=== PATIENT | male | born 1955 | race Caucasian/White ===

== ENCOUNTER → 2019-12-16 | Outpatient (CLI) | payer MEDICARE ==
[~2019-12-16] MED LIST: Decadron IV; ENOXAPARIN40 MG/0.2 SC; FUROSEMIDE10 MG/1 M1 IV; Synthroid,Levo50 MCG NG
== END | disposition home or self-care (01) ==
LOC: COVID19 05:40
PROVIDERS: ATTEND Family Medicine
DX: U07.1 COVID-19 (principal)

== ENCOUNTER 2019-12-18 06:01 | Inpatient (IN) | payer MEDICARE ==
[2019-12-18] VITALS (48 sets, daily range): BP systolic 58–184; BP diastolic 31–91
[~2019-12-18] VITALS: Ht 182.9 cm; Wt 92.6 kg
[2019-12-18 06:18] LABS: BASO % 0.1 % (0.0-1.0); HEMATOCRIT 36.1 % (42.0-52.0); LYMPH # 1.1 10*3/uL (1.3-4.4); MEAN CORPUSCULAR HGB 30.7 pg (27.0-31.0); MEAN CORPUSCULAR HGB CONC 32.7 g/dl (33.0-37.0); MEAN PLATELET VOLUME 10.3 fl (9.6-12.3); MONO # 0.4 10*3/uL (0.1-1.0); MONO % 3.9 % (3.0-9.0); NEUT # 8.9 10*3/uL (2.3-7.9); NEUT % 84.7 % (47.0-73.0); PLATELET COUNT AUTOMATED 324 10*3/uL (130-400); RED BLOOD COUNT 3.84 10*6/uL (4.50-5.90); RED CELL DISTRI WIDTH 14.2 % (0-14.5); WHITE BLOOD COUNT 10.5 10*3/uL (4.8-10.8)
[2019-12-18 06:31] LABS: ALBUMIN 3.4 gm/dl (3.1-4.5); CREATININE 1.68 mg/dL (0.70-1.30); POTASSIUM 3.8 mmol/L (3.5-5.1); TOTAL PROTEIN 7.6 gm/dL (6.4-8.2)
[2019-12-18 06:33] LABS: TROPONIN I 0.036 ng/ml (<0.045)
[2019-12-18 06:38] LABS: THYROID STIM HORMONE (HS) 28.1 uIU/ml (0.358-4.75)
[2019-12-18 07:05] LABS: ABG BASE EXCESS 0.3 mmol/L (-2.0-2.0); ARTERIAL BLOOD GAS PH 7.436 (7.35-7.45)
[2019-12-18 08:36] LABS: ARTERIAL BLOOD GAS PH 7.459 (7.35-7.45)
[2019-12-18 10:52] LABS: ABG BASE EXCESS 0.6 mmol/L (-2.0-2.0); ARTERIAL BLOOD GAS PH 7.461 (7.35-7.45)
[2019-12-18 15:01] LABS: ABG BASE EXCESS -3.7 mmol/L (-2.0-2.0); ARTERIAL BLOOD GAS PH 7.367 (7.35-7.45)
[2019-12-18 17:29] LABS: ABG BASE EXCESS -3.6 mmol/L (-2.0-2.0); ARTERIAL BLOOD GAS PH 7.347 (7.35-7.45)
[2019-12-18 21:20] LABS: ABG BASE EXCESS -1.9 mmol/L (-2.0-2.0); ARTERIAL BLOOD GAS PH 7.336 (7.35-7.45)
[2019-12-19] VITALS (80 sets, daily range): BP systolic 91–9108; BP diastolic 49–96
[2019-12-19 05:41] LABS: ALBUMIN 2.6 gm/dl (3.1-4.5); ALKALINE PHOSPHATASE 65 U/L (45-117); BUN 21 mg/dl (7-24); CHLORIDE 97 mmol/L (98-107); CHOLESTEROL 140 mg/dL (<200); CREATININE 1.25 mg/dL (0.70-1.30); FREE T4 0.23 ng/dl (0.76-1.46); HDL CHOLESTEROL 36 mg/dl (40-60); LDL CHOLESTEROL 44 mg/dL (9-159); POTASSIUM 3.9 mmol/L (3.5-5.1); SGOT/AST 158 IU/L (3-35); SGPT/ALT 96 U/L (12-78); SODIUM 131 mmol/L (136-145); TOTAL PROTEIN 6.5 gm/dL (6.4-8.2); TRIGLYCERIDES 298 mg/dl (<150); VLDL CHOLESTEROL 60 mg/dL (6-40)
[2019-12-19 06:06] LABS: HEMATOCRIT 30.8 % (42.0-52.0); MEAN CELL VOLUME 94.2 fl (80.0-94.0); MEAN CORPUSCULAR HGB 30.3 pg (27.0-31.0); MEAN CORPUSCULAR HGB CONC 32.1 g/dl (33.0-37.0); MEAN PLATELET VOLUME 10.3 fl (9.6-12.3); PLATELET COUNT AUTOMATED 360 10*3/uL (130-400); RED BLOOD COUNT 3.27 10*6/uL (4.50-5.90); RED CELL DISTRI WIDTH 14.3 % (0-14.5); WHITE BLOOD COUNT 12.4 10*3/uL (4.8-10.8)
[2019-12-19 06:13] LABS: ACT PARTIAL THROMBO TIME 36.5 SECONDS (20.0-32.1)
[2019-12-19 07:25] LABS: BURR CELLS FEW; PLATELET SUFFICIENCY NORMAL (NORMAL); POLYCHROMASIA SLIGHT; TOTAL CELLS COUNTED 100 #CELLS
[2019-12-19 07:26] LABS: SCHISTOCYTES FEW
[2019-12-19 07:30] LABS: VITAMIN D, 25-HYDROXY 20.3 ng/mL (30-100)
[2019-12-19 08:42] LABS: ABG BASE EXCESS -0.2 mmol/L (-2.0-2.0); ARTERIAL BLOOD GAS PH 7.382 (7.35-7.45)
[2019-12-19 13:52] LABS: ABG BASE EXCESS -0.9 mmol/L (-2.0-2.0); ARTERIAL BLOOD GAS PH 7.371 (7.35-7.45)
[2019-12-19 16:15] LABS: ABG BASE EXCESS -0.9 mmol/L (-2.0-2.0); ARTERIAL BLOOD GAS PH 7.369 (7.35-7.45)
[2019-12-20] VITALS (14 sets, daily range): BP systolic 85–155; BP diastolic 50–76
[2019-12-20 06:09] LABS: ALBUMIN 2.3 gm/dl (3.1-4.5); BUN 20 mg/dl (7-24); CHLORIDE 96 mmol/L (98-107); CREATININE 1.22 mg/dL (0.70-1.30); HEMATOCRIT 28.4 % (42.0-52.0); LDH 488 U/L (87-241); MEAN CELL VOLUME 94.7 fl (80.0-94.0); MEAN CORPUSCULAR HGB CONC 32.7 g/dl (33.0-37.0); MEAN PLATELET VOLUME 10.9 fl (9.6-12.3); NUCLEATED RED BLOOD CELL 0.2 % (0.0-0.0); PLATELET COUNT AUTOMATED 377 10*3/uL (130-400); POTASSIUM 4.7 mmol/L (3.5-5.1); RED CELL DISTRI WIDTH 14.6 % (0-14.5); SGOT/AST 98 IU/L (3-35); SGPT/ALT 77 U/L (12-78); SODIUM 132 mmol/L (136-145); TOTAL PROTEIN 6.9 gm/dL (6.4-8.2); TRIGLYCERIDES 335 mg/dl (<150); WHITE BLOOD COUNT 13.2 10*3/uL (4.8-10.8)
[2019-12-20 06:10] LABS: ALKALINE PHOSPHATASE 67 U/L (45-117)
[2019-12-20 06:37] LABS: PLATELET SUFFICIENCY NORMAL (NORMAL); TOTAL CELLS COUNTED 100 #CELLS
[2019-12-20 09:38] LABS: ABG BASE EXCESS -0.6 mmol/L (-2.0-2.0); ARTERIAL BLOOD GAS PH 7.399 (7.35-7.45)
[2019-12-21] VITALS (12 sets, daily range): BP systolic 95–179; BP diastolic 56–89
[2019-12-21 06:17] LABS: HEMATOCRIT 28.5 % (42.0-52.0); MEAN CELL VOLUME 95.6 fl (80.0-94.0); MEAN CORPUSCULAR HGB 31.2 pg (27.0-31.0); MEAN CORPUSCULAR HGB CONC 32.6 g/dl (33.0-37.0); MEAN PLATELET VOLUME 10.6 fl (9.6-12.3); NUCLEATED RED BLOOD CELL 0.1 10*3/uL (0.0-0.0); NUCLEATED RED BLOOD CELL 0.8 % (0.0-0.0); PLATELET COUNT AUTOMATED 445 10*3/uL (130-400); RED BLOOD COUNT 2.98 10*6/uL (4.50-5.90); RED CELL DISTRI WIDTH 15.2 % (0-14.5); WHITE BLOOD COUNT 7.4 10*3/uL (4.8-10.8)
[2019-12-21 06:32] LABS: ALBUMIN 2.8 gm/dl (3.1-4.5); ALKALINE PHOSPHATASE 190 U/L (45-117); BUN 25 mg/dl (7-24); CHLORIDE 96 mmol/L (98-107); CREATININE 1.24 mg/dL (0.70-1.30); POTASSIUM 4.2 mmol/L (3.5-5.1); SGOT/AST 412 IU/L (3-35); SGPT/ALT 220 U/L (12-78); SODIUM 135 mmol/L (136-145); TOTAL PROTEIN 7.5 gm/dL (6.4-8.2)
[2019-12-21 08:08] LABS: ABG BASE EXCESS 3.7 mmol/L (-2.0-2.0); ARTERIAL BLOOD GAS PH 7.397 (7.35-7.45)
[2019-12-21 08:31] LABS: PLATELET SUFFICIENCY HIGH (NORMAL); TOTAL CELLS COUNTED 100 #CELLS
[2019-12-21 08:32] LABS: POLYCHROMASIA SLIGHT; ROULEAUX MODERATE
[2019-12-21 12:15] LABS: ABG BASE EXCESS 3.7 mmol/L (-2.0-2.0); ARTERIAL BLOOD GAS PH 7.436 (7.35-7.45)
[2019-12-21 15:55] LABS: ABG BASE EXCESS 2.5 mmol/L (-2.0-2.0); ARTERIAL BLOOD GAS PH 7.405 (7.35-7.45)
[2019-12-21 17:39] LABS: ABG BASE EXCESS 4.4 mmol/L (-2.0-2.0); ARTERIAL BLOOD GAS PH 7.421 (7.35-7.45)
[2019-12-21 21:08] LABS: ABG BASE EXCESS 5.1 mmol/L (-2.0-2.0); ARTERIAL BLOOD GAS PH 7.45 (7.35-7.45)
[2019-12-22] VITALS (39 sets, daily range): BP systolic 68–178; BP diastolic 47–95
[2019-12-22 05:58] LABS: ALBUMIN 3.2 gm/dl (3.1-4.5); ALKALINE PHOSPHATASE 255 U/L (45-117); BUN 30 mg/dl (7-24); CHLORIDE 96 mmol/L (98-107); CREATININE 1.08 mg/dL (0.70-1.30); LDH 668 U/L (87-241); POTASSIUM 3.7 mmol/L (3.5-5.1); SGOT/AST 461 IU/L (3-35); SGPT/ALT 319 U/L (12-78); SODIUM 133 mmol/L (136-145); TOTAL PROTEIN 7.2 gm/dL (6.4-8.2)
[2019-12-22 06:19] LABS: HEMATOCRIT 30.8 % (42.0-52.0); MEAN CELL VOLUME 95.4 fl (80.0-94.0); MEAN CORPUSCULAR HGB 31.3 pg (27.0-31.0); MEAN CORPUSCULAR HGB CONC 32.8 g/dl (33.0-37.0); MEAN PLATELET VOLUME 10.3 fl (9.6-12.3); NUCLEATED RED BLOOD CELL 0.6 % (0.0-0.0); PLATELET COUNT AUTOMATED 524 10*3/uL (130-400); RED BLOOD COUNT 3.23 10*6/uL (4.50-5.90); RED CELL DISTRI WIDTH 15.1 % (0-14.5); WHITE BLOOD COUNT 6.3 10*3/uL (4.8-10.8)
[2019-12-22 06:42] LABS: ATYPICAL LYMPHS 2 % (0-0); TOTAL CELLS COUNTED 100 #CELLS
[2019-12-22 06:43] LABS: PLATELET SUFFICIENCY HIGH (NORMAL); POLYCHROMASIA SLIGHT; ROULEAUX SLIGHT
[2019-12-22 07:49] LABS: ABG BASE EXCESS 5.8 mmol/L (-2.0-2.0); ARTERIAL BLOOD GAS PH 7.464 (7.35-7.45)
[2019-12-22 16:45] LABS: ARTERIAL BLOOD GAS PH 7.446 (7.35-7.45)
[2019-12-22 20:17] LABS: ABG BASE EXCESS 5.7 mmol/L (-2.0-2.0); ARTERIAL BLOOD GAS PH 7.44 (7.35-7.45)
[2019-12-23] VITALS (7 sets, daily range): BP systolic 100–185; BP diastolic 53–88
[2019-12-23 06:17] LABS: ALBUMIN 3.3 gm/dl (3.1-4.5); BUN 29 mg/dl (7-24); CHLORIDE 96 mmol/L (98-107); CREATININE 1.06 mg/dL (0.70-1.30); POTASSIUM 3.5 mmol/L (3.5-5.1); SGOT/AST 239 IU/L (3-35); SGPT/ALT 244 U/L (12-78); SODIUM 136 mmol/L (136-145); TOTAL PROTEIN 7.8 gm/dL (6.4-8.2)
[2019-12-23 06:33] LABS: ALKALINE PHOSPHATASE 256 U/L (45-117); LDH 514 U/L (87-241)
[2019-12-23 06:34] LABS: CPK 1884 U/L (39-308)
[2019-12-23 06:35] LABS: MEAN CELL VOLUME 96.1 fl (80.0-94.0); MEAN CORPUSCULAR HGB 31.2 pg (27.0-31.0); MEAN CORPUSCULAR HGB CONC 32.5 g/dl (33.0-37.0); MEAN PLATELET VOLUME 10.1 fl (9.6-12.3); NUCLEATED RED BLOOD CELL 0.6 % (0.0-0.0); PLATELET COUNT AUTOMATED 519 10*3/uL (130-400); RED BLOOD COUNT 3.33 10*6/uL (4.50-5.90); WHITE BLOOD COUNT 6.3 10*3/uL (4.8-10.8)
[2019-12-23 07:11] LABS: TOTAL CELLS COUNTED 100 #CELLS
[2019-12-23 07:12] LABS: POLYCHROMASIA SLIGHT
[2019-12-23 07:13] LABS: PLATELET SUFFICIENCY HIGH (NORMAL)
[2019-12-23 08:44] LABS: ARTERIAL BLOOD GAS PH 7.47 (7.35-7.45)
[2019-12-24] VITALS (12 sets, daily range): BP systolic 68–172; BP diastolic 40–82
[2019-12-24 06:04] LABS: HEMATOCRIT 33.3 % (42.0-52.0); MEAN CELL VOLUME 95.7 fl (80.0-94.0); MEAN CORPUSCULAR HGB 30.5 pg (27.0-31.0); MEAN CORPUSCULAR HGB CONC 31.8 g/dl (33.0-37.0); MEAN PLATELET VOLUME 9.8 fl (9.6-12.3); NUCLEATED RED BLOOD CELL 0.1 10*3/uL (0.0-0.0); NUCLEATED RED BLOOD CELL 0.7 % (0.0-0.0); PLATELET COUNT AUTOMATED 518 10*3/uL (130-400); RED BLOOD COUNT 3.48 10*6/uL (4.50-5.90); RED CELL DISTRI WIDTH 15.1 % (0-14.5); WHITE BLOOD COUNT 7.6 10*3/uL (4.8-10.8)
[2019-12-24 06:31] LABS: ALBUMIN 2.9 gm/dl (3.1-4.5); BUN 34 mg/dl (7-24); CHLORIDE 99 mmol/L (98-107); POTASSIUM 4.3 mmol/L (3.5-5.1); SODIUM 136 mmol/L (136-145)
[2019-12-24 06:37] LABS: ALKALINE PHOSPHATASE 302 U/L (45-117); CREATININE 1.06 mg/dL (0.70-1.30); LDH 518 U/L (87-241); SGOT/AST 265 IU/L (3-35); SGPT/ALT 254 U/L (12-78); TOTAL PROTEIN 7.5 gm/dL (6.4-8.2)
[2019-12-24 06:41] LABS: CPK 942 U/L (39-308)
[2019-12-24 07:16] LABS: TOTAL CELLS COUNTED 100 #CELLS
[2019-12-24 07:17] LABS: PLATELET SUFFICIENCY HIGH (NORMAL); POLYCHROMASIA SLIGHT; ROULEAUX MARKED
[2019-12-24 08:56] LABS: ABG BASE EXCESS 5.6 mmol/L (-2.0-2.0); ARTERIAL BLOOD GAS PH 7.454 (7.35-7.45)
[2019-12-24 13:19] LABS: ABG BASE EXCESS 5.1 mmol/L (-2.0-2.0); ARTERIAL BLOOD GAS PH 7.461 (7.35-7.45)
[2019-12-25] VITALS (12 sets, daily range): BP systolic 87–161; BP diastolic 56–86
[2019-12-25 01:05] LABS: ABG BASE EXCESS 5.9 mmol/L (-2.0-2.0); ARTERIAL BLOOD GAS PH 7.469 (7.35-7.45)
[2019-12-25 04:27] LABS: ABG BASE EXCESS 5.4 mmol/L (-2.0-2.0); ARTERIAL BLOOD GAS PH 7.421 (7.35-7.45)
[2019-12-25 05:30] LABS: ALBUMIN 2.7 gm/dl (3.1-4.5); BUN 37 mg/dl (7-24); CHLORIDE 102 mmol/L (98-107); CREATININE 1.05 mg/dL (0.70-1.30); LDH 410 U/L (87-241); SGOT/AST 260 IU/L (3-35); SGPT/ALT 310 U/L (12-78); SODIUM 139 mmol/L (136-145); TOTAL PROTEIN 7.5 gm/dL (6.4-8.2); TRIGLYCERIDES 810 mg/dl (<150)
[2019-12-25 05:33] LABS: ALKALINE PHOSPHATASE 351 U/L (45-117); PREALBUMIN 26 mg/dl (20-40)
[2019-12-25 05:34] LABS: CPK 501 U/L (39-308)
[2019-12-25 06:08] LABS: HEMATOCRIT 34.6 % (42.0-52.0); MEAN CORPUSCULAR HGB 30.6 pg (27.0-31.0); MEAN CORPUSCULAR HGB CONC 31.2 g/dl (33.0-37.0); MEAN PLATELET VOLUME 9.9 fl (9.6-12.3); NUCLEATED RED BLOOD CELL 0.4 % (0.0-0.0); PLATELET COUNT AUTOMATED 554 10*3/uL (130-400); RED BLOOD COUNT 3.53 10*6/uL (4.50-5.90); RED CELL DISTRI WIDTH 15.4 % (0-14.5); WHITE BLOOD COUNT 8.9 10*3/uL (4.8-10.8)
[2019-12-25 08:02] LABS: TOTAL CELLS COUNTED 100 #CELLS
[2019-12-25 08:05] LABS: PLATELET SUFFICIENCY HIGH (NORMAL); POLYCHROMASIA SLIGHT
[2019-12-25 08:13] LABS: ABG BASE EXCESS 5.5 mmol/L (-2.0-2.0); ARTERIAL BLOOD GAS PH 7.412 (7.35-7.45)
[2019-12-25 11:48] LABS: ARTERIAL BLOOD GAS PH 7.454 (7.35-7.45)
[2019-12-25 12:41] LABS: ABG BASE EXCESS 5.3 mmol/L (-2.0-2.0); ARTERIAL BLOOD GAS PH 7.431 (7.35-7.45)
[2019-12-25 17:10] LABS: ARTERIAL BLOOD GAS PH 7.496 (7.35-7.45)
[2019-12-26] VITALS (11 sets, daily range): BP systolic 109–146; BP diastolic 53–84
[2019-12-26 05:24] LABS: ALBUMIN 2.6 gm/dl (3.1-4.5); BUN 36 mg/dl (7-24); CHLORIDE 104 mmol/L (98-107); CREATININE 0.81 mg/dL (0.70-1.30); POTASSIUM 4.3 mmol/L (3.5-5.1); SGOT/AST 123 IU/L (3-35); SGPT/ALT 229 U/L (12-78); SODIUM 140 mmol/L (136-145)
[2019-12-26 05:27] LABS: ALKALINE PHOSPHATASE 312 U/L (45-117); LDH 286 U/L (87-241)
[2019-12-26 05:45] LABS: CPK 258 U/L (39-308)
[2019-12-26 06:25] LABS: HEMATOCRIT 33.3 % (42.0-52.0); MEAN CELL VOLUME 97.9 fl (80.0-94.0); MEAN CORPUSCULAR HGB CONC 30.6 g/dl (33.0-37.0); NUCLEATED RED BLOOD CELL 0.2 % (0.0-0.0); PLATELET COUNT AUTOMATED 528 10*3/uL (130-400); RED CELL DISTRI WIDTH 15.4 % (0-14.5); WHITE BLOOD COUNT 10.3 10*3/uL (4.8-10.8)
[2019-12-26 07:12] LABS: PLATELET SUFFICIENCY HIGH (NORMAL); POLYCHROMASIA SLIGHT; ROULEAUX MODERATE; TOTAL CELLS COUNTED 100 #CELLS
[2019-12-26 11:00] LABS: ABG BASE EXCESS 3.8 mmol/L (-2.0-2.0); ARTERIAL BLOOD GAS PH 7.443 (7.35-7.45)
[2019-12-26 16:19] LABS: ABG BASE EXCESS 4.8 mmol/L (-2.0-2.0); ARTERIAL BLOOD GAS PH 7.442 (7.35-7.45)
[2019-12-27] VITALS (11 sets, daily range): BP systolic 92–159; BP diastolic 49–78
[2019-12-27 05:59] LABS: HEMATOCRIT 30.4 % (42.0-52.0); MEAN CELL VOLUME 98.7 fl (80.0-94.0); MEAN CORPUSCULAR HGB 29.9 pg (27.0-31.0); MEAN CORPUSCULAR HGB CONC 30.3 g/dl (33.0-37.0); PLATELET COUNT AUTOMATED 439 10*3/uL (130-400); RED BLOOD COUNT 3.08 10*6/uL (4.50-5.90); RED CELL DISTRI WIDTH 15.6 % (0-14.5)
[2019-12-27 06:11] LABS: BUN 42 mg/dl (7-24); CHLORIDE 107 mmol/L (98-107); CREATININE 0.86 mg/dL (0.70-1.30); LDH 223 U/L (87-241); POTASSIUM 3.9 mmol/L (3.5-5.1); SGOT/AST 96 IU/L (3-35); SGPT/ALT 166 U/L (12-78); SODIUM 142 mmol/L (136-145); TRIGLYCERIDES 683 mg/dl (<150)
[2019-12-27 06:15] LABS: ALKALINE PHOSPHATASE 293 U/L (45-117); CPK 220 U/L (39-308); PREALBUMIN 30 mg/dl (20-40); TOTAL PROTEIN 6.9 gm/dL (6.4-8.2)
[2019-12-27 07:10] LABS: TOTAL CELLS COUNTED 100 #CELLS
[2019-12-27 07:12] LABS: PLATELET SUFFICIENCY HIGH (NORMAL); POLYCHROMASIA SLIGHT
[2019-12-27 08:22] LABS: ABG BASE EXCESS 5.1 mmol/L (-2.0-2.0); ARTERIAL BLOOD GAS PH 7.447 (7.35-7.45)
[2019-12-27 20:26] LABS: ABG BASE EXCESS 4.8 mmol/L (-2.0-2.0); ARTERIAL BLOOD GAS PH 7.456 (7.35-7.45)
[2019-12-27 23:59] LABS: ABG BASE EXCESS 5.4 mmol/L (-2.0-2.0); ARTERIAL BLOOD GAS PH 7.486 (7.35-7.45)
[2019-12-28] VITALS (12 sets, daily range): BP systolic 97–146; BP diastolic 55–80
[2019-12-28 05:33] LABS: ALBUMIN 3.5 gm/dl (3.1-4.5); BUN 41 mg/dl (7-24); CHLORIDE 111 mmol/L (98-107); CREATININE 0.86 mg/dL (0.70-1.30); LDH 244 U/L (87-241); POTASSIUM 3.9 mmol/L (3.5-5.1); SGOT/AST 91 IU/L (3-35); SGPT/ALT 145 U/L (12-78); SODIUM 145 mmol/L (136-145)
[2019-12-28 05:34] LABS: ALKALINE PHOSPHATASE 279 U/L (45-117); CPK 226 U/L (39-308)
[2019-12-28 06:12] LABS: BASO % 0.4 % (0.0-1.0); EOS % 0.4 % (1.0-4.0); HEMATOCRIT 28.2 % (42.0-52.0); LYMPH # 0.9 10*3/uL (1.3-4.4); MEAN CELL VOLUME 97.9 fl (80.0-94.0); MEAN CORPUSCULAR HGB 30.2 pg (27.0-31.0); MEAN CORPUSCULAR HGB CONC 30.9 g/dl (33.0-37.0); MEAN PLATELET VOLUME 10.3 fl (9.6-12.3); MONO # 0.7 10*3/uL (0.1-1.0); MONO % 7.1 % (3.0-9.0); NEUT # 8.4 10*3/uL (2.3-7.9); NEUT % 80.8 % (47.0-73.0); PLATELET COUNT AUTOMATED 405 10*3/uL (130-400); RED BLOOD COUNT 2.88 10*6/uL (4.50-5.90); RED CELL DISTRI WIDTH 15.5 % (0-14.5); WHITE BLOOD COUNT 10.4 10*3/uL (4.8-10.8)
[2019-12-28 08:04] LABS: ABG BASE EXCESS 3.7 mmol/L (-2.0-2.0); ARTERIAL BLOOD GAS PH 7.517 (7.35-7.45)
[2019-12-28 13:52] LABS: ABG BASE EXCESS 2.5 mmol/L (-2.0-2.0); ARTERIAL BLOOD GAS PH 7.48 (7.35-7.45)
[2019-12-28 15:46] LABS: ABG BASE EXCESS 1.7 mmol/L (-2.0-2.0); ARTERIAL BLOOD GAS PH 7.465 (7.35-7.45)
[2019-12-29] VITALS (12 sets, daily range): BP systolic 99–152; BP diastolic 42–82
[2019-12-29 05:41] LABS: ALBUMIN 3.5 gm/dl (3.1-4.5); BUN 44 mg/dl (7-24); CHLORIDE 114 mmol/L (98-107); SGPT/ALT 168 U/L (12-78); SODIUM 145 mmol/L (136-145)
[2019-12-29 05:45] LABS: ALKALINE PHOSPHATASE 299 U/L (45-117); CPK 269 U/L (39-308); CREATININE 0.79 mg/dL (0.70-1.30); LDH 285 U/L (87-241); SGOT/AST 139 IU/L (3-35); TOTAL PROTEIN 7.5 gm/dL (6.4-8.2)
[2019-12-29 06:13] LABS: BASO % 0.3 % (0.0-1.0); EOS % 0.2 % (1.0-4.0); LYMPH # 1.2 10*3/uL (1.3-4.4); LYMPH % 9.9 % (27.0-41.0); MEAN CELL VOLUME 99.7 fl (80.0-94.0); MEAN CORPUSCULAR HGB 30.9 pg (27.0-31.0); MEAN PLATELET VOLUME 10.4 fl (9.6-12.3); MONO # 0.9 10*3/uL (0.1-1.0); NEUT # 9.4 10*3/uL (2.3-7.9); NEUT % 79.6 % (47.0-73.0); PLATELET COUNT AUTOMATED 372 10*3/uL (130-400); RED BLOOD COUNT 2.91 10*6/uL (4.50-5.90); RED CELL DISTRI WIDTH 15.7 % (0-14.5); WHITE BLOOD COUNT 11.8 10*3/uL (4.8-10.8)
[2019-12-29 08:06] LABS: ABG BASE EXCESS 0.5 mmol/L (-2.0-2.0); ARTERIAL BLOOD GAS PH 7.429 (7.35-7.45)
[2019-12-29] MEDS ORDERED: Synthroid,Levo50 MCG NG (13:13)
[2019-12-29] MEDS ORDERED: FUROSEMIDE10 MG/1 M1 IV (13:13)
[2019-12-29] MEDS ORDERED: ENOXAPARIN40 MG/0.2 SC (13:13)
[2019-12-29] MEDS ORDERED: Decadron IV (13:13)
== END 2019-12-29 23:04 | disposition short-term general hospital (02) | DRG 870 ==
LOC: ED 06:01 → ICCU 09:31 → EDHOLD 09:31 → ICCU 09:31
PROVIDERS: Emergency Medicine; Internal Medicine; Internal Medicine Critical Care Medicine; Student in an Organized Health Care Education/Training Program; ADMIT Family Medicine; ATTEND Family Medicine
PROC: 5A1955Z Respiratory Ventilation, Greater than 96 Consecutive Hours (ICD-10-PCS; principal; 2019-12-18)
PROC: 0BH17EZ Insertion of Endotracheal Airway into Trachea, Via Natural or Artificial Opening (ICD-10-PCS; 2019-12-18)
PROC: 02HV33Z Insertion of Infusion Device into Superior Vena Cava, Percutaneous Approach (ICD-10-PCS; 2019-12-18)
PROC: B548ZZA Ultrasonography of Superior Vena Cava, Guidance (ICD-10-PCS; 2019-12-18)
PROC: 5A09357 Assistance with Respiratory Ventilation, Less than 24 Consecutive Hours, Continuous Positive Airway Pressure (ICD-10-PCS; 2019-12-18)
PROC: 0W9930Z Drainage of Right Pleural Cavity with Drainage Device, Percutaneous Approach (ICD-10-PCS; 2019-12-22)
DX: A41.9 Sepsis, unspecified organism (principal); N17.0 Acute kidney failure with tubular necrosis; J96.01 Acute respiratory failure with hypoxia; R65.21 Severe sepsis with septic shock; U07.1 COVID-19; J96.02 Acute respiratory failure with hypercapnia; J12.89 Other viral pneumonia; E87.1 Hypo-osmolality and hyponatremia; D68.59 Other primary thrombophilia; J93.83 Other pneumothorax; J44.0 Chronic obstructive pulmonary disease with (acute) lower respiratory infection; J93.9 Pneumothorax, unspecified; E83.42 Hypomagnesemia; R74.01 Elevation of levels of liver transaminase levels; E03.9 Hypothyroidism, unspecified; E87.6 Hypokalemia; D64.9 Anemia, unspecified; Z68.31 Body mass index [BMI] 31.0-31.9, adult; J45.909 Unspecified asthma, uncomplicated; E66.9 Obesity, unspecified; E78.1 Pure hyperglyceridemia; E83.39 Other disorders of phosphorus metabolism; D47.3 Essential (hemorrhagic) thrombocythemia; E87.5 Hyperkalemia; S00.83XA Contusion of other part of head, initial encounter; X58.XXXA Exposure to other specified factors, initial encounter; Y93.89 Activity, other specified; Y92.89 Other specified places as the place of occurrence of the external cause; Y99.8 Other external cause status